=== PATIENT | male | born 1985 | race Two or more races ===

== ENCOUNTER 2020-03-19 14:03 | Outpatient (CLI) | payer MEDICAID ==
[~2020-03-19 14:03] MED LIST: CITALOPRAM HBR10 M1 PO; DEPAKOTE500 MG PO; DIVALPROEX SOD500 M2; DOCUSATE SODIU100 MG ORAL; GEMFIBROZIL600 M1; RANITIDINE HCL150 M2; RANITIDINE HCL150 MG ORAL; ZOFRAN4 MG ORAL
--- NOTE | 2020-03-20 16:59 | Consultation ---
DATE OF CONSULTATION: 03/19/2020 CONSULTING PHYSICIAN: Babar Sanchez MD CHIEF COMPLAINT: Weight loss, abdominal bloating, abdominal pain. PAST MEDICAL HISTORY: 1. . 2. Depression. 3. Anxiety. 4. Constipation. PAST SURGICAL HISTORY: Cholecystectomy. MEDICATIONS: Please see medication reconciliation list. FAMILY HISTORY: No family history of GI malignancy. SOCIAL HISTORY: Patient denies any tobacco, alcohol, or drug abuse. REVIEW OF SYSTEMS: Positive for 22 pounds of weight loss. PHYSICAL EXAMINATION: GENERAL: A well-developed male, in no acute distress. HEENT: Normocephalic, atraumatic. Sclerae anicteric. NECK: Supple. No evidence of obvious lymphadenopathy. CARDIOVASCULAR: Regular rhythm. Plus S1 and S2. LUNGS: Clear to auscultation bilaterally. ABDOMEN: Positive bowel sounds. Soft and nontender. No rebound. No guarding. No peritoneal sign. EXTREMITIES: No cyanosis, no clubbing, no edema. ASSESSMENT AND PLAN: A 34-year-old male with significant weight loss of 22 pounds. Apparently, he had a negative CT done at [facility], which I do not have the report of it, but the family member that it was negative. The patient had significant amount of bloating. Our plan will be given his significant weight loss, start with endoscopy. Start the patient on Augmentin for 10 days course for possible SIBO. If the above does not help him and does not diagnose him, we will consider doing colonoscopy at that time. Babar Sanchez M.D. DR: JOHN JOB#: [id number] CC:
== END 2020-03-19 16:03 | disposition home or self-care (01) ==
LOC: PAN 14:03
DX: R14.0 Abdominal distension (gaseous) (principal); R10.9 Unspecified abdominal pain; R63.4 Abnormal weight loss; F32.9 Major depressive disorder, single episode, unspecified; F41.9 Anxiety disorder, unspecified; Z90.49 Acquired absence of other specified parts of digestive tract
CPT/HCPCS: G0463

== ENCOUNTER 2020-05-07 13:54 | Outpatient (CLI) | payer MEDICAID ==
[~2020-05-07] VITALS: Ht 172.7 cm; Wt 76.7 kg
[~2020-05-07 13:54] MED LIST changes: +BUPROPION HCL75 MG PO; +CITALOPRAM HBR10 M1 ORAL; +LOVAZA; +MIRALAX17 G2 ORAL
[2020-05-07 14:36] VITALS: BP 109/79
--- NOTE | 2020-05-07 15:53 | General Progress Note ---
Subjective ROS Limited/Unobtainable: Yes Allergies: Coded Allergies: No Known Allergies (Unverified , 09/04/12) Objective Last 24 Hour Vital Signs Date Time Temp Pulse Resp B/P (MAP) Pulse Ox O2 Delivery O2 Flow Rate FiO2 05/07/20 14:36 97.6 91 16 109/79 98 General Appearance: alert EENT: normal ENT inspection Neck: supple Cardiovascular: normal rate Respiratory/Chest: lungs clear Abdomen: normal bowel sounds, non tender, soft Extremities: non-tender Assessment/Plan Assessment/Plan: wt loss s/p EGD and colonoscopy add marinol add anusol HC RTC prn Babar Sanchez MD May 07, 2020 15:53
== END 2020-05-07 15:54 | disposition home or self-care (01) ==
LOC: PAN 13:54
DX: R63.4 Abnormal weight loss (principal)
CPT/HCPCS: 99212